=== PATIENT | male | born 1995 | race Caucasian/White ===

== ENCOUNTER 2023-07-03 01:05 | Emergency (ER) | payer OTHER ==
[~2023-07-03] VITALS: Ht 180.3 cm; Wt 106.1 kg
[2023-07-03] MEDS ORDERED: DEPAKOTE250 MG PO (01:24)
[2023-07-03] MEDS ORDERED: VRAYLAR1.5 MG PO (01:25)
[2023-07-03 01:33] LABS: BASO # 0.1 10*3/uL (0.0-0.1); BASO % 0.5 % (0.0-1.0); EOS # 0.3 10*3/uL (0.0-0.4); EOS % 2.5 % (1.0-4.0); HEMATOCRIT 48.6 % (42.0-52.0); LYMPH # 3.2 10*3/uL (1.3-4.4); LYMPH % 29.1 % (27.0-41.0); MEAN CELL VOLUME 81.8 fl (80.0-94.0); MEAN CORPUSCULAR HGB 27.8 pg (27.0-31.0); MEAN PLATELET VOLUME 9.7 fl (9.6-12.3); MONO # 0.9 10*3/uL (0.1-1.0); MONO % 8.1 % (3.0-9.0); NEUT # 6.5 10*3/uL (2.3-7.9); NEUT % 59.5 % (47.0-73.0); PLATELET COUNT AUTOMATED 251 10*3/uL (130-400); RED BLOOD COUNT 5.94 10*6/uL (4.50-5.90); RED CELL DISTRI WIDTH 13.4 % (0-14.5)
[2023-07-03 01:45] LABS: ACT PARTIAL THROMBO TIME 26.3 SECONDS (20.0-32.1)
[2023-07-03 01:54] LABS: ALKALINE PHOSPHATASE 57 U/L (46-116); BUN 16 mg/dl (9-23); CHLORIDE 101 mmol/L (98-107); LIPASE 36 U/L (12-53); POTASSIUM 3.6 mmol/L (3.4-5.1); SGPT/ALT 23 U/L (10-49); TOTAL PROTEIN 7.8 gm/dL (6.0-8.0)
== END 2023-07-03 03:09 | disposition home or self-care (01) ==
LOC: ED 01:05
PROVIDERS: Internal Medicine
DX: S76.911A Strain of unspecified muscles, fascia and tendons at thigh level, right thigh, initial encounter (principal); X50.1XXA Overexertion from prolonged static or awkward postures, initial encounter; Y93.02 Activity, running; Y92.89 Other specified places as the place of occurrence of the external cause; Y99.0 Civilian activity done for income or pay

== ENCOUNTER 2024-08-08 03:29 | Emergency (ER) | payer OTHER ==
[~2024-08-08] VITALS: Ht 185.4 cm; Wt 120.9 kg
[~2024-08-08 03:29] MED LIST: DEPAKOTE250 MG PO; VRAYLAR1.5 MG PO
[2024-08-08] MEDS ORDERED: VRAYLAR3 MG PO (03:34)
[2024-08-08] MEDS ORDERED: BUSPAR5 MG PO (03:35)
[2024-08-08] MEDS ORDERED: DIVALPROEX SOD250 M1 PO (03:35)
[2024-08-08 03:48] LABS: BASO # 0.1 10*3/uL (0.0-0.1); BASO % 0.8 % (0.0-1.0); EOS # 0.2 10*3/uL (0.0-0.4); EOS % 2.5 % (1.0-4.0); HEMATOCRIT 51.2 % (42.0-52.0); LYMPH # 2.3 10*3/uL (1.3-4.4); LYMPH % 23.5 % (27.0-41.0); MEAN CELL VOLUME 84.9 fl (80.0-94.0); MEAN CORPUSCULAR HGB 27.7 pg (27.0-31.0); MEAN CORPUSCULAR HGB CONC 32.6 g/dl (33.0-37.0); MEAN PLATELET VOLUME 9.7 fl (9.6-12.3); MONO % 10.1 % (3.0-9.0); NEUT % 62.6 % (47.0-73.0); PLATELET COUNT AUTOMATED 259 10*3/uL (130-400); RED BLOOD COUNT 6.03 10*6/uL (4.50-5.90); RED CELL DISTRI WIDTH 12.9 % (0-14.5); WHITE BLOOD COUNT 9.7 10*3/uL (4.8-10.8)
[2024-08-08 04:04] LABS: ALKALINE PHOSPHATASE 69 U/L (46-116); BUN 15 mg/dl (9-23); CHLORIDE 103 mmol/L (98-107); LIPASE 39 U/L (12-53); POTASSIUM 3.9 mmol/L (3.4-5.1); SGPT/ALT 32 U/L (5-49); TOTAL PROTEIN 7.1 gm/dL (6.0-8.0)
[2024-08-08] MEDS ORDERED: Ketorolac Tromethamine 60 MG/2 ML VIAL IM ONE (05:00)
== END 2024-08-08 05:30 | disposition home or self-care (01) ==
LOC: ED 03:29
PROVIDERS: Internal Medicine
DX: K56.41 Fecal impaction (principal); R14.1 Gas pain